=== PATIENT | male | born 1965 | race American Indian/Alaskan Native ===

== ENCOUNTER 2018-07-29 10:11 | Day surgery (SDC) | payer OTHER ==
[~2018-07-29 10:11] MED LIST: NACL 0.9% 1000 ML 1,000 ML IV SCH
--- NOTE | 2018-07-29 12:21 | Anesthesia Day of Surgery ---
Anesthesia Day of Surgery - Day of Surgery Patient Examined: Yes Patient H&P Reviewed: Yes Patient is NPO: Yes Beta Blockers: No Cardiac Clearance: No Pulmonary Clearance: No
--- NOTE | 2018-07-29 12:21 | Anesthesia Consultation ---
Anesthesia Consult and Med Hx Date of service: 07/29/18 - Airway Anesthetic Teeth Evaluation: Good ROM Head & Neck: Adequate Mental/Hyoid Distance: Adequate Mallampati Class: Class III Intubation Access Assessment: Probably Good - Pulmonary Exam CTA: Yes - Cardiac Exam Cardiac Exam: RRR - Pre-Operative Health Status ASA Pre-Surgery Classification: ASA2 Proposed Anesthetic Plan: MAC - Other Systems Hx Alcohol Use: Yes
[2018-07-29] MEDS ORDERED: WATER FOR IRRIG STERILE IR ONE ×2 (12:27→14:11)
[2018-07-29] MEDS ORDERED: WATER FOR IRRIG STERILE ONE (14:12)
[2018-07-29] MEDS ORDERED: VERSED ONE (14:16)
[2018-07-29] MEDS ORDERED: DIPRIVAN 10 MG/ML IV ONE ×3 (14:17)
[2018-07-29 15:45] VITALS: BP 124/96
--- NOTE | 2018-07-29 15:51 | Operative Report ---
Operative Report Operative Report: Date of procedure: 07/29/2018 Procedure: Colonoscopy with Multiple snare polypectomies, Multiple Hot Biopsy Polypectomies, Ablation of colon polyps and Multiple submucosal injections. Attending physician: Maxim Bennett MD Brick Washer: Maxim Bennett MD Indication: Patient is a 53-year-old male who presents for screening colonoscopy, for personal history of colon polyps. This colonoscopy serves to evaluate patient so that treatment may be directed based on the findings. Consent: Informed consent was obtained after advising the patient and family regarding nature of this procedure, its indications, potential benefits as well as possible complications including but not limited to bleeding perforation and adverse reaction to medication, infection as well as other cardiopulmonary complications. An informed written and verbal consent was then obtained after due opportunity was provided for questions and answers. Monitoring: Patient was monitored continuously with pulse oximetry and electrocardiographic recordings as well as blood pressure recordings. Vital signs remained stable throughout this procedure with no untoward events. Preoperative assessment: Patient was assessed immediately prior to this procedure for capacity to tolerate monitored anesthesia care and moderate sedation as well as general anesthesia. Patient's ASA classification is 2, Mallampati class is 2, Hyomental distance is 3. Instrument: CF HQ 190L Olympus video colonoscope. Medications: Propofol given intravenously in divided doses. For details please refer to anesthesia records. Description of procedure: Patient was placed in the left lateral decubitus position after achieving sedation, a digital rectal examination was performed following which the colonoscope was introduced into the anal verge and advanced to the cecum which was identified by the cecal valve, the appendiceal orifice, as well as by the cecal strap and direct transillumination. The colonoscope was subsequently withdrawn with careful inspection of all mucosal surfaces. Patient tolerated this procedure well and was subsequently taken to the recovery room. The following findings were noted. Findings: The colon was moderately tortuous. There was substantial retained thick liquid stool in sections of the colon which was vigorously irrigated. In the proximal ascending colon, there was a 1 cm sessile polyp which was elevated with submucosal injection of saline and removed by snare electrocautery. The rest of the ascending colon was normal. The transverse colon was normal. The descending colon was normal. In the sigmoid colon, there were 2 diminutive sessile polyps measuring about 4-5 mm each which were removed by hot biopsy polypectomy and retrieved. There were 3 diminutive flat polyps which were removed by hot biopsy polypectomy and retrieved. There was one diminutive polyp which was ablated. There were 5 broad base flat polyps that measured between 8 mm to 1.5 cm. All of these polyps were elevated with submucosal injection and removed by snare electrocautery. In particular, 2 of the polyps measured approximately 1.5 cm each. There also appeared to be a mucous patch over multiple of these polyps suggesting possible serrated polyps. All polyps were injected submucosally and then removed by snare electrocautery and retrieved. There were 2 diminutive polyps in the rectum that were ablated. On the retroflexed view at the anal verge, patient had internal hemorrhoids. Impression: Ascending colon polyp status post submucosal injection and snare polypectomy. Sigmoid colon polyp status post hot biopsy polypectomy. Multiple flat sigmoid colon polyps status post submucosal injection and snare p olypectomy. Sigmoid colon polyp status post ablation. Rectal polyp status post ablation. Internal hemorrhoids. Moderately tortuous colon Retained stool.. Plan: Follow pathology report. High-fiber diet. Repeat colonoscopy in 6-12 months.
--- NOTE | 2018-07-29 16:05 | Discharge Summary ---
Short Stay Discharge Plan Activity: advance as tolerated Weight Bearing Status: Weight Bear as Tolerated Diet: regular Follow up with: [facility] [Primary Care Provider] - 7 Days
== END 2018-07-29 10:12 | disposition home or self-care (01) ==
LOC: GIO 10:11
PROVIDERS: ATTEND Internal Medicine Gastroenterology
DX: Z12.11 Encounter for screening for malignant neoplasm of colon (principal); K63.5 Polyp of colon; K62.1 Rectal polyp; K64.8 Other hemorrhoids; Z79.899 Other long term (current) drug therapy; Z72.89 Other problems related to lifestyle
CPT/HCPCS: 45381; 45384; 45385; 45388; 88305; J2250; J2704; J7030